=== PATIENT | male | born 1955 | race Caucasian/White ===

== ENCOUNTER → 2022-04-05 | Outpatient (CLI) | payer BC, SELFPAY ==
[2022-04-10 18:07] LABS: Clam <0.10 kU/L (Class 0); Codfish <0.10 kU/L (Class 0); Corn <0.10 kU/L (Class 0); Egg, White 0.12 kU/L (Class 0/I); Milk (Cow) 0.32 kU/L (Class I); Peanut <0.10 kU/L (Class 0); SCALLOP <0.10 kU/L (Class 0); Shrimp 0.31 kU/L (Class 0/I); Soybean <0.10 kU/L (Class 0); Walnut, (Food) <0.10 kU/L (Class 0); Wheat 0.11 kU/L (Class 0/I)
[2022-04-10 20:08] LABS: SESAME SEED <0.10 kU/L (Class 0)
[2022-04-11 00:06] LABS: Alternaria tenuis <0.10 kU/L (Class 0); Ash, White <0.10 kU/L (Class 0); Aspergillus fumigatus <0.10 kU/L (Class 0); Bermuda Grass 0.41 kU/L (Class I); Birch <0.10 kU/L (Class 0); Black Walnut <0.10 kU/L (Class 0); Cedar, Mountain <0.10 kU/L (Class 0); Cladosporium herbarum <0.10 kU/L (Class 0); Cottonwood <0.10 kU/L (Class 0); D farinae Mite <0.10 kU/L (Class 0); D pteronyssinus <0.10 kU/L (Class 0); Dog Epithelia 4.57 kU/L (Class IV); Elm, American White <0.10 kU/L (Class 0); Immunoglobulin E 303 IU/mL (6-495); Maple/Box Elder 0.26 kU/L (Class 0/I); Mulberry, White <0.10 kU/L (Class 0); Oak, White <0.10 kU/L (Class 0); Pecan 1.19 kU/L (Class II); Penicillium Notatum <0.10 kU/L (Class 0); Pigweed, Rough <0.10 kU/L (Class 0); Ragweed, Short/Common 0.38 kU/L (Class I); Russian Thistle <0.10 kU/L (Class 0); Sheep Sorrel <0.10 kU/L (Class 0); Sycamore, American <0.10 kU/L (Class 0); Timothy Grass 5.12 kU/L (Class IV)
[2022-04-12 17:12] LABS: Mouse Urine 0.68 kU/L (Class II)
== END | disposition home or self-care (01) ==
LOC: LAB 15:56
PROVIDERS: PCP Internal Medicine; Referring Provider Otolaryngology; Visit Provider Otolaryngology
DX: T78.40XA Allergy, unspecified, initial encounter (principal)
CPT/HCPCS: 36415; 82785; 86003

== ENCOUNTER → 2022-07-26 | Outpatient (CLI) | payer BC, SELFPAY ==
--- NOTE | 2022-07-26 07:49 | CT_ITS ---
STUDY: CT ABDOMEN AND PELVIS WITH AND WITHOUT CONTRAST REASON FOR EXAM: Male, 66 years old. GROSS HEMATURIA. History of kidney stones. RADIATION DOSAGE (If Supplied By Facility): CTDIvol = ( 22.83 ) mGy, DLP = ( 3060.66 ) mGycm TECHNIQUE: Transaxial images were obtained from the dome of the diaphragm to the symphysis pubis without oral contrast. IV 100mL Isovue-[id number] was administered. Sagittal and coronal images were reconstructed. Individualized dose optimization techniques were used for this CT. COMPARISON: None. FINDINGS: The visualized lung bases are unremarkable. Coronary artery calcification. There is decreased attenuation of the liver consistent with steatosis. Focal thickening in the distal portion of the gallbladder lumen suggestive of either sludge or possible soft tissue density. Correlation with ultrasound is recommended. Normal spleen. Normal pancreas. Normal bilateral adrenal glands. There are scattered nonobstructive right intrarenal calculi. The largest is in the mid pole and measures 5 mm. There is a 4.6 mm nonobstructive calculus in the upper pole of the left kidney. It also demonstrates a 3 mm calculus in the midpole as well as a 2.5 mm calculus in the lower pole. Normal visualized stomach. Normal small intestine. There are multiple colonic diverticula consistent with diverticulosis. The appendix is visualized and appears normal. There is scattered atherosclerotic calcification of the abdominal aorta, without a demonstrated aneurysm. Normal inferior vena cava. Normal retroperitoneum. Minimally thickened urinary bladder wall. The prostate measures 4.3 cm x 3.6 cm. Normal abdominal wall. There are degenerative changes of the visualized lumbar spine. CT/CT Abd/Pelvis W/WO Contrast IMPRESSION: Multiple bilateral nonobstructive intrarenal calculi. Fatty filtration of the liver. Focal thickening along the distal portion of the gallbladder wall. Correlation with ultrasound recommended. Electronically Signed: Dusty Millan MD at 9:43 EDT ,
[2022-07-26 08:25] LABS: CREATININE FINGERSTICK 1.1 mg/dL (0.70-1.30); EGFR FINGERSTICK > 60.0000 mL/min (>60)
== END | disposition home or self-care (01) ==
LOC: CT 07:48
PROVIDERS: PCP Internal Medicine; Referring Provider Urology; Visit Provider Urology
DX: R31.0 Gross hematuria (principal)
CPT/HCPCS: 74178; Q9967